=== PATIENT | male | born 1960 | race Caucasian/White ===

== ENCOUNTER 2024-09-15 12:56 | Emergency (ER) | payer MEDICARE ==
[~2024-09-15] VITALS: Ht 182.9 cm; Wt 81.7 kg
[2024-09-15] MEDS ORDERED: CEPH500 PO (14:58)
== END 2024-09-15 16:36 | disposition home or self-care (01) ==
LOC: ER 12:56
DX: S62.636B Displaced fracture of distal phalanx of right little finger, initial encounter for open fracture (principal); X58.XXXA Exposure to other specified factors, initial encounter
CPT/HCPCS: 12001; 73140; 99283-25